=== PATIENT | female | born 1985 | race Caucasian/White ===

== ENCOUNTER → 2018-11-10 16:04 | Outpatient (CLI) | payer OTHER, SELFPAY ==
--- NOTE | 2018-11-10 16:06 | DI.RAD.S_ITS ---
PROCEDURE: XR FOOT RT MIN 3V INDICATIONS: Foreign object in foot TECHNIQUE: 3 views of the foot were acquired. COMPARISON: None. FINDINGS: Bones: No fractures or dislocations. No bony erosions. No suspicious bony lesions. Soft tissues: There is a linear metallic foreign body demonstrated within the plantar soft tissues between the 4th and 5th proximal phalanges. This measures up to 1 cm in length. IMPRESSION: 1. Linear metallic foreign body within the plantar soft tissues as described. Dictated by: Samuel Mancilla M.D. on 11/10/2018 at 16:24 Approved by: Samuel Mancilla M.D. on 11/10/2018 at 16:25
== END ==
PROVIDERS: Visit Provider Physician Assistant
DX: S90.851A Superficial foreign body, right foot, initial encounter (principal); W45.8XXA Other foreign body or object entering through skin, initial encounter
CPT/HCPCS: 73630